=== PATIENT | female | born 1955 | race Hispanic/Latino ===

== ENCOUNTER 2019-02-04 11:27 | Emergency (ER) | payer OTHER ==
[~2019-02-04] VITALS: Ht 162.6 cm; Wt 72.6 kg
[~2019-02-04 11:27] MED LIST: LOSARTAN POTASS25 MG PO; METFORMIN PO; NEXIUM40 MG PO
--- OUTSIDE RECORDS SUMMARY | 2019-02-04 11:31 | XMS REPORT ---
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 Allergies, Adverse Reactions, Alerts This patient has no known allergies or adverse reactions. Medications This patient has no known medications. Results Test Description Test Time Test Comments Text Results Atomic Results Result Comments SCR MAMM BILATERAL DEANN CAD DIGITAL 2018-08-24 12:24:18 - SCR MAMM BILATERAL DEANN CAD DIGITALBILATERAL DIGITAL SCREENING MAMMOGRAM 3D/2D WITH CAD: 08/24/2018CLINICAL: Asymptomatic. Digital breast tomosynthesis was performed in addition to routine CC and MLO views. Current mammographic images were evaluated by either a [employer] M-Vu or a [employer] ImageChecker CAD (computer aided detection system). Comparison is made to exams dated 07/14/2017 mammogram, 2016 mammogram, and 07/27/2015 mammogram - [facility]. The tissue of both breasts is heterogeneously dense. This may lower the sensitivity of mammography. Multiple oval circumscribed masses stable in the left breast since comparison mammograms, benign. Biopsy marker clip in the left breast, benign.No suspicious mass, architectural distortion, malignant type calcification, or lymph node abnormality detected. Breast architecture is stable compared to prior exams.IMPRESSION: BENIGNThere is no mammographic evidence of malignancy. Resume annual screening mammography in one year. Katiuska Sen M.D. ss/:08/24/2018 12:24:18 Ferris Wheel Operator: Ghazal MCARTHUR, [facility] sent: BIRADS 1-2 Normal Mammogram BI-RADS: 2 Benign
[2019-02-04] MEDS ORDERED: SODIUM CHLORIDE 0.9% 1000ML 1,000 ML IV STA (12:14)
[2019-02-04 12:24] LABS: BASOPHILS # (AUTO) 0.1 (0.0-0.1); BASOPHILS % 0.7 % (0.0-1.0); EOSINOPHILS % 0.3 % (0.0-6.0); HEMATOCRIT 42.6 % (34.2-44.1); HEMOGLOBIN 14.5 g/dL (12.0-16.0); LYMPHOCYTES # (AUTO) 2.2 (1.0-3.2); LYMPHOCYTES % 28.8 % (18.0-39.1); MEAN CORPUSCULAR HEMOGLOBIN 28.1 pg (28-32); MEAN CORPUSCULAR VOLUME 82.6 fL (81-99); MONOCYTES # (AUTO) 0.3 (0.2-0.8); MONOCYTES % 4.4 % (4.4-11.3); NEUTROPHILS # (AUTO) 4.9 (2.1-6.9); NEUTROPHILS % 65.5 % (38.7-80.0); PLATELET COUNT 264 x10e3/uL (140-360); RED BLOOD COUNT 5.16 x10e6/uL (3.6-5.1); RED CELL DISTRIBUTION WIDTH 12.5 % (11.7-14.4)
[2019-02-04 12:47] LABS: ALANINE AMINOTRANSFERASE 10 IU/L (0-55); ALBUMIN 3.9 g/dL (3.5-5.0); ALBUMIN/GLOBULIN RATIO 0.9 (0.8-2.0); ALKALINE PHOSPHATASE 128 IU/L (40-150); ANION GAP 14.1 mmol/L (8-16); BLOOD UREA NITROGEN 15 mg/dL (7-26); BUN/CREATININE RATIO 17 (6-25); CALCIUM 9.8 mg/dL (8.4-10.2); CARBON DIOXIDE 27 mmol/L (22-29); CHLORIDE 95 mmol/L (98-107); CREATINE KINASE 35 IU/L (29-168); EST GLOMERULAR FILTRATION RATE > 60 ML/MIN (60-); POTASSIUM 4.1 mmol/L (3.5-5.1); SODIUM 132 mmol/L (136-145)
[2019-02-04 12:59] LABS: GLUCOSE 530 mg/dL (74-118)
[2019-02-04] MEDS ORDERED: INSULIN REGULAR, HUMAN 100 UNIT/1 ML 3ML VIAL IV ONE (13:00)
[2019-02-04 14:57] VITALS: BP 120/62
== END 2019-02-04 14:58 | disposition home or self-care (01) ==
LOC: ER 11:27
DX: E11.65 Type 2 diabetes mellitus with hyperglycemia (principal); Z79.4 Long term (current) use of insulin; Z83.3 Family history of diabetes mellitus; Z82.49 Family history of ischemic heart disease and other diseases of the circulatory system; R63.1 Polydipsia; R35.8 Other polyuria; T38.3X6A Underdosing of insulin and oral hypoglycemic [antidiabetic] drugs, initial encounter
CPT/HCPCS: 36415; 80053; 82550; 82553; 82948; 84484; 85025; 93005; 99283; J1817; J7030

== ENCOUNTER 2020-05-25 20:08 | Emergency (ER) | payer MEDICARE, OTHER ==
[~2020-05-25] VITALS: Ht 162.6 cm; Wt 72.6 kg
[2020-05-25] MEDS ORDERED: IBUPROFEN 400 MG TAB ONE (20:34)
[2020-05-25] MEDS ORDERED: ONDANSETRON HCL INJ 2MG/ML 2ML 2 MG/ML VIAL IV STA (20:48)
[2020-05-25] MEDS ORDERED: FAMOTIDINE 20 MG/2 ML VIAL IV STA (20:53)
[2020-05-25] MEDS ORDERED: ONDANSETRON HCL INJ 2MG/ML 2ML 2 MG/ML VIAL ONE (20:54)
[2020-05-25] MEDS ORDERED: DEXAMETHASONE SOD PHOS INJ 4 MG/ML VIAL ONE (20:55)
[2020-05-25] MEDS ORDERED: SODIUM CHLORIDE 0.9% 1000ML 1,000 ML ONE ×2 (20:55→22:42)
[2020-05-25] MEDS ORDERED: FAMOTIDINE 20 MG/2 ML VIAL IV ONE (20:55)
[2020-05-25] MEDS ORDERED: SODIUM CHLORIDE 0.9% 1000ML 1,000 ML IV SCH ×2 (21:00→22:15)
[2020-05-25] MEDS ORDERED: ACETAMINOPHEN 325 MG TAB PO ONE (21:00)
[2020-05-25] MEDS ORDERED: IBUPROFEN 400 MG TAB PO ONE (21:00)
[2020-05-25] MEDS ORDERED: DEXAMETHASONE SOD PHOS INJ 4 MG/ML VIAL IV ONE (21:15)
[2020-05-25] MEDS ORDERED: ACETAMINOPHEN 325 MG TAB ONE (21:19)
[2020-05-25] MEDS ORDERED: AZITHROMYCIN 500MG/NS 250 ML 250 ML IV ONE (22:15)
[2020-05-25] MEDS ORDERED: AZITHROMYCIN 500MG/NS 250 ML 250 ML ONE (22:21)
[2020-05-25] MEDS ORDERED: SODIUM CHLORIDE 0.9% 50ML 50 ML ONE (22:40)
[2020-05-25] MEDS ORDERED: IOPAMIDOL 370 MG/ML 200 ML INFUS..BTL INJ ONE (22:40)
[2020-05-25] MEDS ORDERED: ZITHROMAX250 MG PO (23:33)
[2020-05-25] MEDS ORDERED: DECADRON6 MG PO (23:35)
== END 2020-05-26 00:05 | disposition home or self-care (01) ==
LOC: FSED 20:49
DX: U07.1 COVID-19 (principal); R05 Cough; R06.02 Shortness of breath; E86.0 Dehydration; E86.1 Hypovolemia; R10.13 Epigastric pain; R92.1 Mammographic calcification found on diagnostic imaging of breast; R94.31 Abnormal electrocardiogram [ECG] [EKG]
CPT/HCPCS: 71046; 71260; 80053; 82553; 84484; 85025; 85379; 99284; J0456; J1100; J2405; J7030; Q9967; 93005

== ENCOUNTER 2022-07-25 17:54 | Inpatient (IN) | payer MEDICARE, OTHER ==
[~2022-07-25] VITALS: Ht 160 cm; Wt 78.9 kg
[~2022-07-25 17:54] MED LIST changes: +DECADRON6 MG PO; +ZITHROMAX250 MG PO
[2022-07-25 18:20] LABS: BASOPHILS # (AUTO) 0.1 (0.0-0.1); BASOPHILS % 0.6 % (0.0-1.0); EOSINOPHILS # (AUTO) 0.1 (0.0-0.4); EOSINOPHILS % 1.2 % (0.0-6.0); HEMATOCRIT 41.3 % (34.2-44.1); HEMOGLOBIN 13.5 g/dL (12.0-16.0); LYMPHOCYTES # (AUTO) 2.7 (1.0-3.2); LYMPHOCYTES % 30.7 % (18.0-39.1); MEAN CORPUSCULAR HEMOGLOBIN 28.1 pg (28-32); MEAN CORPUSCULAR HGB CONC 32.7 g/dL (31-35); MONOCYTES # (AUTO) 0.4 (0.2-0.8); MONOCYTES % 4.9 % (4.4-11.3); NEUTROPHILS # (AUTO) 5.5 (2.1-6.9); NEUTROPHILS % 62.4 % (38.7-80.0); PLATELET COUNT 353 x10e3/uL (140-360); RED CELL DISTRIBUTION WIDTH 13.2 % (11.7-14.4)
[2022-07-25 18:38] LABS: ALBUMIN 3.4 g/dL (3.5-5.0); ALBUMIN/GLOBULIN RATIO 0.9 (0.8-2.0); CALCIUM 8.3 mg/dL (8.4-10.2); CREATININE, SERUM 0.75 mg/dL (0.57-1.11)
[2022-07-25 18:44] LABS: CREATINE KINASE MB 1.1 ng/mL (0-5.0)
[2022-07-25] MEDS ORDERED: DICYCLOMINE HCL 20 MG/2 ML VIAL IM ONE (20:15)
[2022-07-25] MEDS ORDERED: KETOROLAC TROMETHAMINE 30 MG/ML VIAL IV STA (20:15)
[2022-07-25] MEDS ORDERED: DEXTROSE 50% SYRINGE 50 ML IV PRN (20:30)
[2022-07-25] MEDS: INSULIN REGULAR, HUMAN 100 UNIT/1 ML SQ SCH (21:00)
[2022-07-25] MEDS: ONDANSETRON HCL INJ 2MG/ML 2ML 2 MG/ML VIAL IV PRN (21:01)
[2022-07-25] MEDS: Morphine 4mg INJECTION 4 MG/ML INJ IV PRN (21:01)
[2022-07-25] MEDS: SODIUM CHLORIDE 0.9% 1000ML 1,000 ML IV SCH ×2 (21:01→23:09)
[2022-07-25] MEDS ORDERED: TRESIBA FL100 UNIT/1 SC (22:36)
[2022-07-25] MEDS ORDERED: FARXIGA10 MG PO (22:36)
[2022-07-25] MEDS ORDERED: LIPITOR20 MG PO (22:36)
[2022-07-25] MEDS ORDERED: METFORMIN HCL500 MG PO (22:36)
[2022-07-25] MEDS ORDERED: NOVOLOG100 UNIT/1 SC (22:36)
[2022-07-26] VITALS (8 sets, daily range): BP systolic 123–151; BP diastolic 54–71
[2022-07-26 05:11] LABS: BASOPHILS # (AUTO) 0.1 (0.0-0.1); BASOPHILS % 0.6 % (0.0-1.0); EOSINOPHILS # (AUTO) 0.2 (0.0-0.4); EOSINOPHILS % 2.1 % (0.0-6.0); HEMATOCRIT 38.9 % (34.2-44.1); HEMOGLOBIN 12.5 g/dL (12.0-16.0); LYMPHOCYTES # (AUTO) 2.6 (1.0-3.2); LYMPHOCYTES % 33.8 % (18.0-39.1); MEAN CORPUSCULAR HEMOGLOBIN 28.1 pg (28-32); MEAN CORPUSCULAR HGB CONC 32.1 g/dL (31-35); MEAN CORPUSCULAR VOLUME 87.4 fL (81-99); MONOCYTES # (AUTO) 0.5 (0.2-0.8); MONOCYTES % 6.1 % (4.4-11.3); NEUTROPHILS # (AUTO) 4.4 (2.1-6.9); PLATELET COUNT 329 x10e3/uL (140-360); RED BLOOD COUNT 4.45 x10e6/uL (3.6-5.1); RED CELL DISTRIBUTION WIDTH 13.2 % (11.7-14.4)
[2022-07-26 05:37] LABS: ALBUMIN 2.8 g/dL (3.5-5.0); ALBUMIN/GLOBULIN RATIO 0.8 (0.8-2.0); ANION GAP 10.8 mmol/L (8-16); CALCIUM 8.3 mg/dL (8.4-10.2); CREATININE, SERUM 0.71 mg/dL (0.57-1.11); POTASSIUM 3.8 mmol/L (3.5-5.1)
[2022-07-26] MEDS: Morphine 4mg INJECTION 4 MG/ML INJ IV PRN ×4 (07:46→21:25)
[2022-07-26] MEDS: ONDANSETRON HCL INJ 2MG/ML 2ML 2 MG/ML VIAL IV PRN ×4 (07:46→21:24)
[2022-07-26] MEDS: INSULIN REGULAR, HUMAN 100 UNIT/1 ML SQ SCH ×4 (07:50→19:52)
[2022-07-26] MEDS ORDERED: ACETAMINOPHEN 1000 MG/100 ML IV PRN (08:45)
[2022-07-26] MEDS ORDERED: ACETAMINOPHEN 325 MG SUPP PR PRN (08:45)
[2022-07-26] MEDS ORDERED: HYDRALAZINE HCL 20 MG/ML VIAL IV PRN (08:45)
[2022-07-26] MEDS: SODIUM CHLORIDE 0.9% 1000ML 1,000 ML IV SCH ×2 (16:01→19:51)
[2022-07-27] VITALS (9 sets, daily range): BP systolic 122–153; BP diastolic 52–74
[2022-07-27 04:56] LABS: BASOPHILS # (AUTO) 0.1 (0.0-0.1); EOSINOPHILS # (AUTO) 0.1 (0.0-0.4); EOSINOPHILS % 1.9 % (0.0-6.0); HEMATOCRIT 41.6 % (34.2-44.1); LYMPHOCYTES # (AUTO) 2.1 (1.0-3.2); LYMPHOCYTES % 33.8 % (18.0-39.1); MEAN CORPUSCULAR HEMOGLOBIN 27.4 pg (28-32); MEAN CORPUSCULAR HGB CONC 31.3 g/dL (31-35); MEAN CORPUSCULAR VOLUME 87.8 fL (81-99); MONOCYTES # (AUTO) 0.3 (0.2-0.8); MONOCYTES % 5.1 % (4.4-11.3); NEUTROPHILS # (AUTO) 3.7 (2.1-6.9); NEUTROPHILS % 57.9 % (38.7-80.0); PLATELET COUNT 326 x10e3/uL (140-360); RED BLOOD COUNT 4.74 x10e6/uL (3.6-5.1); RED CELL DISTRIBUTION WIDTH 13.2 % (11.7-14.4)
[2022-07-27 05:17] LABS: ANION GAP 11.9 mmol/L (8-16); CALCIUM 8.2 mg/dL (8.4-10.2); CREATININE, SERUM 0.64 mg/dL (0.57-1.11); POTASSIUM 3.9 mmol/L (3.5-5.1)
[2022-07-27] MEDS: INSULIN REGULAR, HUMAN 100 UNIT/1 ML SQ SCH ×4 (07:30→21:00)
[2022-07-27] MEDS: ONDANSETRON HCL INJ 2MG/ML 2ML 2 MG/ML VIAL IV PRN ×3 (09:12→23:40)
[2022-07-27] MEDS: SODIUM CHLORIDE 0.9% 1000ML 1,000 ML IV SCH ×2 (09:13→22:53)
[2022-07-27] MEDS: Morphine 4mg INJECTION 4 MG/ML INJ IV PRN ×3 (09:21→23:40)
[2022-07-28] VITALS (8 sets, daily range): BP systolic 133–146; BP diastolic 55–67
[2022-07-28] MEDS: INSULIN REGULAR, HUMAN 100 UNIT/1 ML SQ SCH ×4 (07:30→20:19)
[2022-07-28] MEDS: ONDANSETRON HCL INJ 2MG/ML 2ML 2 MG/ML VIAL IV PRN ×3 (08:41→21:31)
[2022-07-28] MEDS: Morphine 4mg INJECTION 4 MG/ML INJ IV PRN (08:42)
[2022-07-28] MEDS: SODIUM CHLORIDE 0.9% 1000ML 1,000 ML IV SCH ×2 (08:46→17:43)
[2022-07-28] MEDS ORDERED: BUPIVACAINE 0.5%/EPI 30 ML SDV INJ ONE (12:43)
[2022-07-28] MEDS ORDERED: ONDANSETRON HCL INJ 2MG/ML 2ML 2 MG/ML VIAL ONE (13:45)
[2022-07-28] MEDS ORDERED: SEVOFLURANE INHAL SOLN 250 ML PEN BTL ONE (13:45)
[2022-07-28] MEDS ORDERED: NEOSTIGMINE 1 MG/ML 10ML VIAL ONE (13:45)
[2022-07-28] MEDS ORDERED: PROPOFOL IV EMULSION 10 MG/ML 20 ML VIAL ONE (13:45)
[2022-07-28] MEDS ORDERED: ROCURONIUM BROMIDE 10 MG/ML 5ML VIAL IV ONE (13:45)
[2022-07-28] MEDS ORDERED: GLYCOPYRROLATE INJ 0.2 MG/ML VIAL ONE (13:45)
[2022-07-28] MEDS ORDERED: KETOROLAC TROMETHAMINE 30 MG/ML VIAL ONE (13:45)
[2022-07-28] MEDS ORDERED: POVIDONE IODINE 0.05% 0.05 % ML PO ONE (13:45)
[2022-07-28] MEDS ORDERED: LIDOCAINE HCL 2% LOCAL INJ 5 ML SDV VIAL INJ ONE (13:45)
[2022-07-28] MEDS ORDERED: ONDANSETRON HCL INJ 2MG/ML 2ML 2 MG/ML VIAL IV PRN (14:45)
[2022-07-28] MEDS ORDERED: HYDROCODONE/APAP 7.5MG-325MG 1 EA TAB PO PRN (14:45)
[2022-07-28] MEDS: HYDROMORPHONE 1MG/1ML INJ IV PRN ×2 (16:00→21:31)
[2022-07-29] VITALS (7 sets, daily range): BP systolic 102–150; BP diastolic 51–75
[2022-07-29] MEDS: HYDROMORPHONE 1MG/1ML INJ IV PRN ×6 (00:25→17:26)
[2022-07-29] MEDS: SODIUM CHLORIDE 0.9% 1000ML 1,000 ML IV SCH ×2 (04:24→14:48)
[2022-07-29] MEDS: ONDANSETRON HCL INJ 2MG/ML 2ML 2 MG/ML VIAL IV PRN ×3 (04:24→17:26)
[2022-07-29 06:32] LABS: ALBUMIN 2.8 g/dL (3.5-5.0); ALBUMIN/GLOBULIN RATIO 0.8 (0.8-2.0); ANION GAP 14.7 mmol/L (8-16); CALCIUM 8.1 mg/dL (8.4-10.2); CREATININE, SERUM 0.73 mg/dL (0.57-1.11); POTASSIUM 3.7 mmol/L (3.5-5.1)
[2022-07-29 07:04] LABS: BASOPHILS # (AUTO) 0.1 (0.0-0.1); BASOPHILS % 0.6 % (0.0-1.0); EOSINOPHILS % 0.5 % (0.0-6.0); HEMATOCRIT 39.5 % (34.2-44.1); HEMOGLOBIN 12.4 g/dL (12.0-16.0); LYMPHOCYTES # (AUTO) 1.8 (1.0-3.2); LYMPHOCYTES % 22.4 % (18.0-39.1); MEAN CORPUSCULAR HEMOGLOBIN 27.4 pg (28-32); MEAN CORPUSCULAR HGB CONC 31.4 g/dL (31-35); MEAN CORPUSCULAR VOLUME 87.4 fL (81-99); MONOCYTES # (AUTO) 0.6 (0.2-0.8); MONOCYTES % 7.1 % (4.4-11.3); NEUTROPHILS # (AUTO) 5.5 (2.1-6.9); NEUTROPHILS % 69.3 % (38.7-80.0); PLATELET COUNT 336 x10e3/uL (140-360); RED BLOOD COUNT 4.52 x10e6/uL (3.6-5.1); RED CELL DISTRIBUTION WIDTH 13.3 % (11.7-14.4)
[2022-07-29] MEDS: INSULIN REGULAR, HUMAN 100 UNIT/1 ML SQ SCH ×3 (09:09→16:25)
== END 2022-07-29 18:19 | disposition home or self-care (01) | DRG 419 ==
LOC: ER 18:03 → INTOOBSV 20:30 → ERHOLD 20:30 → MED/SURG 21:27 → MED/SURG2 07-26 23:41 → OBSVTOIN 07-27 10:52
PROVIDERS: ADMIT Internal Medicine; ATTEND Internal Medicine
PROC: 0FT44ZZ Resection of Gallbladder, Percutaneous Endoscopic Approach (ICD-10-PCS; principal; 2022-07-28 13:29)
DX: K80.10 Calculus of gallbladder with chronic cholecystitis without obstruction (principal); E11.9 Type 2 diabetes mellitus without complications; I10 Essential (primary) hypertension; Z20.822 Contact with and (suspected) exposure to COVID-19
CPT/HCPCS: 36415; 71045; 76705; 78227; 80048; 80053; 82550; 82553; 82948; 83690; 84484; 85025; 88304; 93005; 94799; 99252; 99284; A9537; C1766; G0378; J1170; J1885; J2001; J2270; J2405; J2543; J2710; J7030